=== PATIENT | male | born 1975 | race Caucasian/White ===

== ENCOUNTER 2016-08-17 05:57 | Outpatient (CLI) | payer BC ==
[~2016-08-17] VITALS: Ht 195.6 cm; Wt 125.4 kg
--- NOTE | ~2016-08-17 | CATH ---
Cardiac Diagnostic Report Demographics Patient Name JOCELYN Iverson Gender Male Date of 1975 Age 40 year(s) Patient Number [id number] Date of Study 08/17/2016 Visit Number [id number] Room Number G6399 [place] [id number] Ht 195.6 cm Wt 125.4 kg Referring Barbie Quinones MD Primary Physician Physician Performing [facility] Secondary Physician Physician Catalina MARINA Diagnostic [facility] [place] Assisting Physician Physician Catalina MARINA Interventional Physician Continuous Process Machine Operator Physician Findings and Conclusions Diagnostic Findings and Conclusion Aneurysmal LAD\E\E\E\CX\E\E\E\RCA without any obstructive CAD. Diagnostic Recommendations Proceed with EP evaluation. Continue guideline directed medical therapy for HOCM. Procedure Description The patient was brought to the diagnostic cardiac catheterization-EP laboratory in the fasting, non-sedated state. Informed consent was obtained in the written and verbal form after the risks and benefits were explained. The patient had no further questions and agreed to proceed. The planned puncture-incision site(s) were shaved and prepped with ChloraPrep and draped in the usual sterile manner. Conscious sedation, supplemental oxygen, and pain control medications were delivered by a registered nurse under physician guidance. Surface ECG rhythm, blood pressure measurement, and pulse oximetry were monitored throughout the procedure. Arterial access. The access site was infiltrated with lidocaine. The vessel was entered with the Seldinger technique. A sheath was advanced into the vessel and used for catheter placement. Selective left coronary angiography. A catheter was advanced into the left coronary vessel ostium under Fluoroscopic guidance. Contrast was injected by hand. Images were obtained in multiple projections. Selective right coronary angiography. A catheter was advanced into the right coronary vessel ostium under fluoroscopic guidance. Contrast was injected by hand. Images were obtained in multiple projections. Left heart catheterization. A catheter was advanced across the aortic valve to the left ventricle under fluoroscopic guidance. Resting hemodynamics were obtained. Arterial artery hemostasis was achieved. The patient was transferred to a regular nursing floor via cart accompanied by a nurse. The patient left the laboratory in stable condition. Diagnostic Cath Status: Elective Procedure Procedure Type Diagnostic procedure:Angiography:, Coronary Angios w/[facility] Indications: Atrial fibrillation. The procedure was explained in detail to the patient. Risks, complications and alternative treatments were reviewed. Written consent was obtained. Medications Reviewed with Patient prior to Procedure. Angiographic Findings Dominance: Right Cardiac Arteries and Lesion Findings LMCA: Normal (0% Stenosis). LAD: Abnormal.aneurysmal prox 30% diag WNL Lesion on Prox LAD: Proximal subsection.30% stenosis . LCx: Abnormal.aneurysmal Om wnl RCA: Abnormal.aneurysmal RCA PL wnl PDA wnl Coronary Tree Procedure Data Procedure Date Date: 08/17/2016Start: 08:13 AMEnd: 08:35 AM Entry Locations - Retrograde Percutaneous access was performed through the Right Radial artery (Primary location). A 6 Fr sheath was inserted. Hemostasis was successfully obtained using Mechanical Compression. Closure Comments: 11 cc air in r band deployed by daniela. Procedure Medications Order and Administration + + + +-------+ !Time !Medication !Dosage !Route ! + + + +-------+ 08/17/2016 07:59 AM !Versed !1 mg !I.V. ! + + + +-------08/17/2016 08:07 AM !Fentanyl !25 mcg !I.V. ! + + + +-------08/17/2016 08:14 AM !Fentanyl !25 mcg !I.V. ! + + + +-------+ !08/17/2016 08:15 AM !Versed !0.5 mg !I.V. ! + + + +-------+ !08/17/2016 08:17 AM !Radial Verapamil !2.5 mg !I.A. ! + + + +-------+ !08/17/2016 08:28 AM !Heparin (ACC_3) !5000 units ! ! + + + +-------+ Devices Used - A5 Fr. BS JR 4 Diag. Catheterwas used for:Right coronary angiography. - A5 Fr. BS JL 3.5 Diag. Catheterwas used for:Left coronary angiography. Contrast Material - Isovue 26250 ml Fluoroscopy Time: Diagnostic: 2:06 minutes. Total: 2:06 minutes. Fluoroscopy Dose: Diagnostic: 763 mGy. Total: 763 mGy. Estimated Blood Loss: 10 ml. Medical History Allergies - No known allergies. Risk Factors The patient risk factors include:obesity, hypertension, family history of premature CAD, last creatinine: 0.9 mg/dl and creatinine clearance: 189.65 ml/min. Admission Data Admission Date: 08/17/2016 Admission Time: 05:57 AM Admit Source: Other Insurance Payors: Private health insurance. Admission Medications + +------+------+ + + + + !Medication !Dosage!Times !Last !Last !Administered !Comments ! ! ! !Per !Delivery !Delivery ! ! ! ! ! !Day !Date !Time ! ! ! + +------+------+ + + + + !BROCK ! ! ! ! ! ! ! !Inhibitor ! ! ! ! ! ! ! !(any) ! ! ! ! ! ! ! + +------+------+ + + + + Clinical Evaluation Leading to Procedure - The patient's CAD presentation was assessed as: Symptom unlikely to be ischemic. - There were no anginal symptoms. - The patient has been in a state of heart failure within the past two weeks. - The patient's heart failure status was assessed as NYHA Class II, with CHF symptoms of HOLT. 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 Snapshots Hemodynamics Condition: Rest O2 Consumption: Estimated: 302.19Heart Rate: 59 bpm Pressures (mmHg) +-----+ + !Site !Pressure ! +-----+ + !LV !130/1 ,21 ! +-----+ + !LV !125/0 ,19 ! +-----+ + !AO !126/71 (97) ! +-----+ + !LV !129/0 ,19 ! +-----+ + !AO !119/74 (95) ! +-----+ + Valve Gradients and Areas + +---------+---------+---------+ +---------+ + !Valve !Peak !Mean !Area !Index !Flow !Source ! + +---------+---------+---------+ +---------+ + !Aortic !2 !0 ! ! ! ! ! + +---------+---------+---------+ +---------+ + !Aortic !2 !0 ! ! ! ! ! + +---------+---------+---------+ +---------+ + Shunts Oxygen Values O2 Capacity 186.32 O2 Consumption 302.19 Discharge Data Discharge Date: 08/17/2016 Hospital Status: Outpatient Signatures dtt: CATALINA MARTINEZ dtd: 08/17/16 0813 Physician Self Edit
[~2016-08-17 05:57] MED LIST: LISINOPRIL-HCT1 EAC2 PO
[2016-08-17 06:42] LABS: BASOPHIL % 0.3 %; EOSINOPHIL # 0.1 K/uL (0.0-0.5); EOSINOPHIL % 1.8 %; HEMOGLOBIN 13.7 g/dL (12.0-17.0); IMMATURE GRANULOCYTE % 0.5 %; LYMPHOCYTE # 2.3 K/uL (0.8-4.0); MCH 30.9 pg (27.0-34.0); MCHC 34.3 gm/dL (32.0-36.5); MCV 90.3 fl (83.0-98.0); MONOCYTE # 0.6 K/uL (0.0-1.0); MONOCYTE % 9.8 %; MPV 9.8 fl (9.4-12.4); NEUTROPHIL # (ANC) 3.1 K/uL (1.4-9.0); NEUTROPHIL % 50.6 %; NRBC % 0 /100WBC (0-0.00); PLATELET COUNT 245 K/uL (150-450); RBC 4.43 M/uL (4.00-6.00); RDW-CV 12.5 % (11.9-14.6); WBC 6.1 K/uL (4.0-11.0)
[2016-08-17 06:56] LABS: INR - (THERAPEUTIC) 1.04 (0.92-1.07); PROTIME 10.9 SECONDS (9.8-11.4); PTT 27 SECONDS (25-32)
[2016-08-17 06:59] LABS: ALBUMIN 4.1 gm/dL (3.5-5.0); ALK PHOS 66 IU/L (33-138); ALT 26 IU/L (12-78); ANION GAP 9.6 (10.0-19.0); AST 24 IU/L (10-40); BLOOD UREA NITROGEN 14 mg/dL (6-24); CALCIUM 8.9 mg/dL (8.5-10.5); CHLORIDE 107 mMol/L (96-110); CO2 29 mMol/L (22-32); CREATININE 0.9 mg/dL (0.6-1.3); POTASSIUM 3.6 mMol/L (3.7-5.1); SODIUM 142 mMol/L (135-145); TOTAL PROTEIN 7.5 g/dL (6.0-8.4)
[2016-08-17 07:00] LABS: ESTIMATED GFR (MDRD EQUATION) > 60
== END 2016-08-17 11:05 | disposition disaster alternative care site (69) ==
LOC: GCAT 05:57 → GPCU 05:57 → GPOC 06:00 → GCAT 11:05
PROVIDERS: Internal Medicine Interventional Cardiology
PROC: 4A023N7 Measurement of Cardiac Sampling and Pressure, Left Heart, Percutaneous Approach (ICD-10-PCS; principal; 2016-08-17)
PROC: B2111ZZ Fluoroscopy of Multiple Coronary Arteries using Low Osmolar Contrast (ICD-10-PCS; principal; 2016-08-17)
DX: I42.2 Other hypertrophic cardiomyopathy (principal); I25.41 Coronary artery aneurysm; I48.3 Typical atrial flutter; I10 Essential (primary) hypertension; I47.2 Ventricular tachycardia; E66.9 Obesity, unspecified; Z85.820 Personal history of malignant melanoma of skin; Z82.49 Family history of ischemic heart disease and other diseases of the circulatory system; Z79.899 Other long term (current) drug therapy
CPT/HCPCS: C1769; J1644; J2250; J3010; J7030